=== PATIENT | male | born 1950 | race Two or more races ===

== ENCOUNTER 2021-04-20 06:45 | Day surgery (SDC) | payer OTHER | END 2021-04-20 11:45 | disposition home or self-care (01) | LOC: AMB-ENDOS 06:45 | PROVIDERS: ATTEND Colon & Rectal Surgery | DX: D12.4 Benign neoplasm of descending colon (principal); D12.5 Benign neoplasm of sigmoid colon; K64.1 Second degree hemorrhoids; Z20.822 Contact with and (suspected) exposure to COVID-19 ==